=== PATIENT | female | born 1960 | race Caucasian/White ===

== ENCOUNTER → 2025-03-22 06:48 | Outpatient (CLI) | payer MEDICARE, OTHER, SELFPAY ==
--- NOTE | 2025-03-22 06:52 | DI.CT.S_ITS ---
PROCEDURE: CT CHEST WO CON INDICATIONS: follow up lung nodule TECHNIQUE: Noncontrast 5 mm thick sections acquired from the pulmonary apices to the posterior costophrenic angles. 1 mm lung window, 5 mm thick coronal and sagittal and 7 mm axial MIP reformats were then acquired. For radiation dose reduction, the following was used: automated exposure control, adjustment of mA and/or kV according to patient size. COMPARISON: Outside Facility, CT, CT CHEST WO CON, 02/12/2023, 15:35. Outside Facility, CT, CT CHEST WO CON, 10/30/2022, 7:55. FINDINGS: Image quality: Diagnostic. Lower Neck: No enlarged lymph nodes. Thyroid: No thyroid nodules which require sonographic follow up, per consensus guidelines. Axillae: No enlarged lymph nodes. Chest Wall: Unremarkable. Bones: Unremarkable. Lungs and Pleura: No pneumothorax or pleural effusions. No consolidation or suspicious nodules. Three separate findings that were stable 02/12/[address] scanning are again seen and unchanged in size or morphology. On the right these are a posterolateral right lower lobe nodule measuring up to 7 mm, a very small ovoid anterolateral 3 x 4 mm radiodensity in the right upper lobe. On the left there is a small stable left lower lobe pneumatocele. All of these are benign in origin given stability over time. Heart: Heart size is normal. No pericardial effusion. Thoracic Vessels: The aorta and pulmonary arteries demonstrate normal size. Mediastinum and Chand[place]: No enlarged lymph nodes. Esophagus: No wall thickening. No hiatal hernia. Upper Abdomen: Visualized upper abdomen solid organs and bowel loops appear normal. IMPRESSION: No change from the prior 2 CT scans the latest having been obtained at [facility], [place] 02/12/23. No follow-up recommended. Dictated by: Danny Price M.D. on 03/30/2025 at 9:36 Approved by: Danny Price M.D. on 03/30/2025 at 9:43
== END ==
PROVIDERS: PCP Family Medicine; Referring Provider Family Medicine; Visit Provider Family Medicine
DX: R91.1 Solitary pulmonary nodule (principal)
CPT/HCPCS: 71250